=== PATIENT | male | born 1960 | race Caucasian/White ===

== ENCOUNTER 2016-10-23 07:03 | Emergency (ER) | payer BC ==
[2016-10-23 07:18] VITALS: BP 133/82
--- NOTE | 2016-10-23 07:27 | UC ---
Respiratory Complaint HPI - HPI Summary HPI Summary: The patient comes in today for: 1. Headache, sore throat, vomiting: Onset: 4 days ago. Palliative/provocative: "Everything is better, but it has not gone away." Quality: Chest: dull. Throat: scratchy. Head: Sinus pressure. Region: Chest and throat Severity: Throat/Sinus: 4/10. Chest: 10 Time: Constant. Associated symptoms: Chest pain: Dull, located retrosternally with no radation, and nothing he does makes it better or worse. He denies any shortness of breath or palpitations. He denies any diaphoresis. CAD risk factors: Age: (+), HTN: (-) , DM: (-), Smoker: (-), Fm Hx: (-), Cholesterol: (?). Fevers: None at this time. Cough: Present, but "once in a while he will bring phlegm up which is clear. " Rhinitis: Clear. Dyspnea: NOne. Vomiting: Yesterday, but not since then. Diarrhea: None. * - History of Current Complaint Chief Complaint: UCRespiratory Stated Complaint: CONGESTION,SORE THROAT Time Seen by Provider: 10/23/16 07:20 Hx Obtained From: Patient - Allergies/Home Medications Allergies/Adverse Reactions: Allergies Allergy/AdvReac Type Severity Reaction Status Date / Time No Known Allergies Allergy Verified 10/23/16 07:09 Home Medications: Home Medications Acetaminophen 1,000 mg PO Q6H PRN 10/23/16 [History Confirmed 10/23/16] Pseudoephedrine TAB* [Sudafed TAB*] 30 mg PO Q6H PRN 10/23/16 [History Confirmed 10/23/16] PMH/Surg Hx/FS Hx/Imm Hx Previously Healthy: Yes Endocrine History Of: Denies: Diabetes, Thyroid Disease, Hyperthyroidism, Hypothyroidism, Dyslipidemia Cardiovascular History Of: Denies: Cardiac Disorders, Hypertension, Pacemaker/ICD, Myocardial Infarction , Congestive Heart Failure, Atrial Fibrillation, Deep Vein Thrombosis, Bleeding Disorders Respiratory History Of: Denies: COPD, Asthma, Bronchitis, Pneumonia, Pulmonary Embolism GI/ History Of: Denies: Gastroesophageal Reflux, Ulcer, Gastrointestinal Bleed, Gall Bladder Disease, Kidney Stones, Diverticulitis, Renal Disease, Urosepsis Neurological History Of: Denies: TIA, CVA, Dementia, Seizures, Migraine Psychological History Of: Denies: Anxiety, Depression, Bipolar Disorder, Schizophrenia, Post Traumatic Stress Disorder Cancer History Of: Denies: Lung Cancer, Colorectal Cancer, Breast Cancer, Prostate Cancer, Cervical Cancer Other History Of: Anticoagulant Therapy - Aspirin 81 mg/day. Negative For: HIV, Hepatitis B, Hepatitis C - Surgical History Surgical History: Yes Surgery Procedure, Year, and Place: CHOLECYSTECTOMY. BACK SX. HIATAL HERNIA REPAIR - Family History Known Family History: Negative: Cardiac Disease, Hypertension - Social History Occupation: Employed Full-time Alcohol Use: Rare Substance Use Type: None Smoking Status (MU): Never Smoked Tobacco - Immunization History Most Recent Influenza Vaccination: 2015 Review of Systems Constitutional: Negative Skin: Negative Eyes: Negative ENT: Sore Throat Respiratory: Negative Cardiovascular: Chest Pain Gastrointestinal: Negative Genitourinary: Negative Neurological: Headache All Other Systems Reviewed And Are Negative: Yes Physical Exam Triage Information Reviewed: Yes Appearance: Well-Appearing, No Pain Distress, Well-Nourished Vital Signs: Initial Vital Signs Temp 98.2 F 10/23/16 07:10 Pulse 85 10/23/16 07:10 Resp 20 10/23/16 07:10 BP 133/82 10/23/16 07:10 Pulse Ox 100 10/23/16 07:10 Vital Signs Reviewed: Yes Eyes: Positive: Conjunctiva Clear. Negative: Discharge ENT: Positive: Hearing grossly normal. Negative: Pharyngeal erythema, Nasal congestion, Nasal drainage, TM bulging, TM dull, TM red, Tonsillar swelling, Tonsillar exudate Dental: Negative: Gross Decay/Caries @, Dental Fracture @ Neck: Positive: Supple, Nontender, No Lymphadenopathy. Negative: Nuchal Rigidity Respiratory: Positive: Chest non-tender, Lungs clear, No respiratory distress, No accessory muscle use. Negative: Crackles, Wheezing Cardiovascular: Positive: RRR, No Murmur Abdomen Description: Positive: Nontender, No Organomegaly, Soft. Negative: Distended, Guarding Musculoskeletal: Positive: Strength Intact, ROM Intact, No Edema. Negative: Strength Limited @ Neurological: Positive: Alert, Muscle Tone Normal Psychological: Positive: Age Appropriate Behavior, Consolable Skin: Negative: rashes, breakdown UC Diagnostic Evaluation - Laboratory O2 Sat by Pulse Oximetry: 100 Diagnostic Studies Comment: Strep test: (-) Respiratory Course/Dx - Course Course Of Treatment: Patient was told of the negative strep test as well as his treatment options. He did not want any medications for his symptoms. Since he was complaining of chest pain, he was told what we could do here (CXR, EKG), but he did not want any of this testing. He was also told: I was not able to make an exact diagnosis for the cause of their chest pain tough I suspect that it may be from his upper respiratory infection--but I can't prove it. Further, the patient was told that many things can cause this type of pain--some benign and some life-threatening. Also, the patient was told that some of these life- threatening conditions may present with minimal symptoms or in. atypical ways or be present with no symptoms. Based on all of this, the patient was told that my recommendation is for them to go to the ER where they have the testing to rule out these more life-threatening conditions. He declined. - Differential Dx/Diagnosis Differential Diagnosis/HQI/PQRI: Bronchitis, Laryngitis, Sinusitis Provider Diagnoses: Viral syndrome. Upper respiratory infection. Discharge - Discharge Plan Condition: Stable Disposition: HOME Patient Education Materials: Upper Respiratory Infection (ED), Viral Syndrome ( ED) Forms: *Work Release Referrals: Nela Lacey NP [Primary Care Provider] -
== END 2016-10-23 08:29 | disposition home or self-care (01) ==
LOC: UCCORT 07:03
DX: B34.9 Viral infection, unspecified (principal); J06.9 Acute upper respiratory infection, unspecified; Z79.82 Long term (current) use of aspirin
CPT/HCPCS: 87651; 99211; G0463

== ENCOUNTER 2018-03-21 11:13 | Emergency (ER) | payer BC, OTHER ==
--- NOTE | 2018-03-21 12:21 | UC ---
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 c/o pain to the forefoot. tetanus within 10 years/UTD. - History of Current Complaint Chief Complaint: UCTrauma Stated Complaint: RIGHT FOOT INJURY Time Seen by Provider: 03/21/18 12:15 Hx Obtained From: Patient Onset/Duration: Sudden Onset Pain Intensity: 4 Aggravating Factor(s): Ambulation Alleviating Factor(s): Rest Able to Bear Weight: Yes Related History: Occupational Injury - Allergies/Home Medications Allergies/Adverse Reactions: Allergies Allergy/AdvReac Type Severity Reaction Status Date / Time No Known Allergies Allergy Verified 03/21/18 11:48 PMH/Surg Hx/FS Hx/Imm Hx Previously Healthy: Yes Other History Of: Anticoagulant Therapy - Aspirin 81 mg/day. Negative For: HIV, Hepatitis B, Hepatitis C - Surgical History Surgical History: Yes Surgery Procedure, Year, and Place: CHOLECYSTECTOMY. BACK SX. HIATAL HERNIA REPAIR - Family History Known Family History: Positive: None Negative: Cardiac Disease, Hypertension - Social History Occupation: Employed Full-time Alcohol Use: Rare Substance Use Type: None Smoking Status (MU): Never Smoked Tobacco - Immunization History Most Recent Influenza Vaccination: 2015 Vaccination Up to Date: Yes Review of Systems Constitutional: Negative Skin: Negative Eyes: Negative ENT: Negative Respiratory: Negative Cardiovascular: Negative Gastrointestinal: Negative Genitourinary: Negative Motor: Negative Neurovascular: Negative Musculoskeletal: Other: - pain/swelling R foot Neurological: Negative Psychological: Negative Is Patient Immunocompromised?: No All Other Systems Reviewed And Are Negative: Yes Physical Exam Triage Information Reviewed: Yes Appearance: Well-Appearing Vital Signs: Initial Vital Signs Temp 98.6 F 03/21/18 11:43 Pulse 64 03/21/18 11:43 Resp 18 03/21/18 11:43 BP 149/91 03/21/18 11:43 Pulse Ox 99 03/21/18 11:43 Vital Signs Reviewed: Yes Eyes: Positive: Conjunctiva Clear ENT: Positive: Normal ENT inspection Neck: Positive: Supple, Nontender, No Lymphadenopathy Respiratory: Positive: Lungs clear, Normal breath sounds Cardiovascular: Positive: RRR, No Murmur Abdomen Description: Positive: Nontender, No Organomegaly, Soft Bowel Sounds: Positive: Present Musculoskeletal: Positive: Other: - RLE: hip, knee, achilles, ankle are atraumatic. foot=3-5th toes with pain and swelling with very superficial abrasions. foot has gross s/v/m function. Neurological: Positive: Alert Psychological: Positive: Age Appropriate Behavior Skin Exam: Normal Diagnostics - Radiology No standard instances Radiology Interpretation Completed By: Radiologist - R FOOT IMPRESSION: NEGATIVE EXAMINATION. Lower Extremity Course/Dx - Course Course Of Treatment: No fx or dislocation on xray. Swelling is minimal and gross s/v/m function intact thus no concern for compartment syndrom. Repeat BP 136/86 thus I think his bp is visit/injury related. no hx htn. - Differential Dx/Diagnosis Provider Diagnoses: Contusion R foot. Superficial abrasions R foot. Discharge - Sign-Out/Discharge Documenting (check all that apply): Patient Departure - Discharge Plan Condition: Stable Disposition: HOME Patient Education Materials: Foot Contusion (ED), Abrasion (ED) Referrals: Nela Lacey NP [Primary Care Provider] - If Needed Ousmane Hernandez MD [Medical Doctor] - If Needed Additional Instructions: FOLLOW UP DR HERNANDEZ([facility]) IN 5 DAYS FOR RECHECK IF NOT IMPROVING OR SOONER FOR ANY WORSENING. WEAR THE POST OP SHOE NEEDED UNTIL BETTER. - Billing Disposition and Condition Condition: STABLE Disposition: Home
[2018-03-21 12:38] VITALS: BP 136/86
--- NOTE | 2018-03-21 12:46 | RAD ---
INDICATION: Right foot injury COMPARISON: None TECHNIQUE: AP, lateral, and oblique views were obtained. FINDINGS: The bony structures, joint spaces, and soft tissues are normal for age. IMPRESSION: NEGATIVE EXAMINATION.
== END 2018-03-21 13:16 | disposition home or self-care (01) ==
LOC: UCCORT 11:13
DX: S90.811A Abrasion, right foot, initial encounter (principal); W24.0XXA Contact with lifting devices, not elsewhere classified, initial encounter; Y93.9 Activity, unspecified; Y92.9 Unspecified place or not applicable; Y99.0 Civilian activity done for income or pay
CPT/HCPCS: 99211; G0463